=== PATIENT | male | born 1945 | race Caucasian/White ===

== ENCOUNTER 2020-11-20 06:32 | Day surgery (SDC) | payer MEDICARE, OTHER ==
[2020-11-20] MEDS ORDERED: Sodium Chloride 0.9% 1,000 ML IV SCH (07:00)
[2020-11-20] MEDS ORDERED: Metoprolol Tartrate 25 MG Tab PO ONE (07:10)
[2020-11-20] MEDS ORDERED: Metoprolol Tartrate 25 MG Tab*POM PO ONE (07:30)
[2020-11-20] MEDS ORDERED: Midazolam 1 MG/ML 2 ML SDV ONE (07:39)
[2020-11-20] MEDS ORDERED: fentaNYL 100 MCG/2 ML SDV ONE (07:39)
[2020-11-20] MEDS ORDERED: Propofol 200 MG/20 ML SDV ONE (07:39)
--- NOTE | 2020-11-20 10:25 | OR ---
DATE OF PROCEDURE: 11/20/2020 SURGEON: Ba Lucas MD PROCEDURE: Colonoscopy. FINDINGS: 1. Ascending colon polyp, approximately 5 mm, completely removed using cold biopsy forceps. 2. Descending colon polyp, approximately 8 mm, completely removed using hot snare wire device. COMPLICATIONS: None. RAILS DEVELOPER: None. ANESTHESIA: MAC. PREOPERATIVE DIAGNOSIS: Screening colonoscopy. POSTOPERATIVE DIAGNOSIS: Screening colonoscopy. RISKS: Risks, benefits, alternatives, and limitations including but not limited to infection, bleeding, perforation, false positives, and false negatives were explained to the patient, who wished to proceed. PROCEDURE IN DETAIL: The patient was placed in left lateral decubitus position. Digital rectal exam was performed without abnormality. The scope was introduced and advanced atraumatically to the ileocecal valve. Scope was brought back to the ascending, transverse, descending colon, and retroflexed. The aforementioned polyps were identified and completely removed as described above. No abnormal bleeding was noted after this. No other abnormalities were noted. The patient did have some mild diverticulosis in the sigmoid colon. No abnormalities on retroflexion. Greater than 8 minutes was spent removing the scope. The prep was acceptable, approximately 90% of the luminal surface could be seen. Of note, the patient had a mild external hemorrhoid. The patient tolerated the procedure well. Ba Lucas MD /[id number]
== END 2020-11-20 09:28 | disposition home or self-care (01) ==
LOC: JP.SDS 06:32
PROVIDERS: ATTEND Surgery
DX: Z12.11 Encounter for screening for malignant neoplasm of colon (principal); D12.2 Benign neoplasm of ascending colon; D12.4 Benign neoplasm of descending colon; K64.4 Residual hemorrhoidal skin tags; K57.30 Diverticulosis of large intestine without perforation or abscess without bleeding; I10 Essential (primary) hypertension; E78.5 Hyperlipidemia, unspecified; I25.10 Atherosclerotic heart disease of native coronary artery without angina pectoris; E11.9 Type 2 diabetes mellitus without complications; Z80.0 Family history of malignant neoplasm of digestive organs
CPT/HCPCS: 45380; 45385; 88305; A9270; J2250; J2704; J3010; J7030

== ENCOUNTER 2022-08-14 20:01 | Emergency (ER) | payer MEDICARE, OTHER ==
[2022-08-14] MEDS ORDERED: Sodium Chloride 0.9% 10 ML Syringe FLUSH PRN (20:32)
[2022-08-14] MEDS: Sodium Chloride 0.9% 1,000 ML IV SCH ×2 (20:39→22:20)
[2022-08-14 20:40] LABS: BASOPHILS ABSOLUTE AUTO 0.04 K/uL (0.00-0.10); BASOPHILS PERCENT AUTO 0.4 % (0.1-1.3); EOSINOPHILS ABSOLUTE AUTO 0.21 K/uL (0.00-0.40); EOSINOPHILS PERCENT AUTO 2.1 % (0.0-5.4); HEMATOCRIT 46.5 % (38.4-49.7); HEMOGLOBIN 16.8 g/dL (12.9-16.9); IMMATURE GRAN ABSOLUTE AUTO 0.03 K/uL (0.00-0.23); IMMATURE GRAN PERCENT AUTO 0.3 % (0.0-0.7); LYMPHOCYTES ABSOLUTE AUTO 2.78 K/uL (0.8-3.3); LYMPHOCYTES PERCENT AUTO 27.3 % (11.4-47.7); MEAN CORPUSCULAR HEMOGLOBIN 31.6 pg (31.6-35.5); MEAN CORPUSCULAR HGB CONC 36.1 g/dL (31.6-35.5); MEAN CORPUSCULAR VOLUME 87.4 fL (81.4-99.0); MONOCYTES ABSOLUTE AUTO 0.42 K/uL (0.20-0.90); MONOCYTES PERCENT AUTO 4.1 % (3.3-12.6); NEUTROPHILS PERCENT AUTO 65.8 % (40.0-78.1); PLATELET COUNT,PLT 184 K/uL (130-375); RED BLOOD CELL COUNT 5.32 M/uL (4.14-5.76); WHITE BLOOD CELL COUNT,WBC 10.2 K/uL (3.2-11.0)
[2022-08-14 20:41] LABS: BASE EXCESS VENOUS 1.2 mm/L; BICARBONATE,VENOUS 25.9 mmol/L; CARBOXYHEMOGLOBIN 2.3 % (0.0-1.6); METHEMOGLOBIN 0.6 %; OXYHEMOGLOBIN 70.9 %; PCO2 VENOUS 43.4 mm/Hg; PH,VENOUS 7.394 (7.350-7.450); PO2 VENOUS 40.2 mm/Hg; TOTAL HEMOGLOBIN 17.4 g/dL (13.5-18.0)
[2022-08-14 21:04] LABS: A/G RATIO 1.2 (1.2-2.2); ALANINE AMINOTRANSFERASE,ALT 55 U/L (12-78); ALBUMIN 4.1 g/dL (3.4-5.0); ALKALINE PHOSPHATASE 114 U/L (46-116); ASPARTATE AMNIOTRANSFERASE,AST 26 U/L (15-37); BILIRUBIN TOTAL 0.6 mg/dL (0.2-1.0); BLOOD UREA NITROGEN,BUN 38 mg/dL (7-18); CALCIUM 9.6 mg/dL (8.5-10.1); CARBON DIOXIDE,CO2 28 mmol/L (21-32); CHLORIDE,CL 93 mmol/L (100-108); CREATININE 1.7 mg/dL (0.8-1.3); ESTIMATED GFR 42 mL/min (>60); POTASSIUM,K 4.7 mmol/L (3.6-5.2); PROTEIN TOTAL,TP 7.6 g/dL (6.4-8.2); SODIUM,NA 129 mmol/L (140-148)
[2022-08-14 21:05] LABS: ANION GAP 12.7 mmol/L (5.0-14.0)
[2022-08-14 21:06] LABS: GLUCOSE RANDOM 523 mg/dL (74-106)
[2022-08-14] MEDS ORDERED: Insulin Regular, Human 100 Units/ML 3 ML Vial IVPUSH ONE (21:14)
[2022-08-14] MEDS ORDERED: 50% Dextrose in Water 50 ML Syringe IVPUSH PRN ×2 (21:14→22:07)
[2022-08-14] MEDS ORDERED: Glucagon,Human Recombinant 1 MG Vial IM PRN ×2 (21:14→22:07)
[2022-08-14] MEDS ORDERED: Sodium Chloride 0.9% 1,000 ML IV SCH (21:45)
[2022-08-14] MEDS ORDERED: Insulin Glargine,Human Rec. Analog 100 Units/ML 3 ML Pen SUBCUT SCH (22:15)
== END 2022-08-14 22:55 | disposition home or self-care (01) ==
LOC: JP.ED 20:01
DX: E11.65 Type 2 diabetes mellitus with hyperglycemia (principal); E86.0 Dehydration; E87.1 Hypo-osmolality and hyponatremia; I12.9 Hypertensive chronic kidney disease with stage 1 through stage 4 chronic kidney disease, or unspecified chronic kidney disease; E11.22 Type 2 diabetes mellitus with diabetic chronic kidney disease; N18.32 Chronic kidney disease, stage 3b; I25.10 Atherosclerotic heart disease of native coronary artery without angina pectoris; E78.00 Pure hypercholesterolemia, unspecified; Z79.84 Long term (current) use of oral hypoglycemic drugs; Z79.899 Other long term (current) drug therapy
CPT/HCPCS: 36415; 80053; 82009; 82803; 82947; 85025; 96360; 96361; 99284; J1815; J3490; J7030

== ENCOUNTER 2022-08-16 13:24 | Emergency (ER) | payer MEDICARE, OTHER | END 2022-08-16 14:20 | disposition home or self-care (01) | LOC: JP.ED 13:24 | DX: E11.65 Type 2 diabetes mellitus with hyperglycemia (principal); I10 Essential (primary) hypertension; I25.10 Atherosclerotic heart disease of native coronary artery without angina pectoris; E78.00 Pure hypercholesterolemia, unspecified; Z79.82 Long term (current) use of aspirin; Z79.899 Other long term (current) drug therapy; Z95.1 Presence of aortocoronary bypass graft; Z79.84 Long term (current) use of oral hypoglycemic drugs | CPT/HCPCS: 99283 ==